=== PATIENT | female | born 1990 | race Caucasian/White ===

== ENCOUNTER 2021-05-14 13:55 | Emergency (ER) | payer OTHER ==
[~2021-05-14] VITALS: Ht 154.9 cm; Wt 68.0 kg
[~2021-05-14 13:55] MED LIST: ALBU-118 IH
[2021-05-14 14:13] VITALS: BP 122/76
[2021-05-14] MEDS ORDERED: IBUP-2213 PO (14:34)
[2021-05-14] MEDS ORDERED: AMOX-1000 PO (14:34)
--- NOTE | 2021-05-14 15:33 | NUR ---
Patient discharged by myself @ 1440. Patient in good condition, no complaints, stable vitals. All questions answered. given rx for augmentin and ibuprofen. Patient verbalized understanding of d/c instructions and agrees with treatment and plan.
== END 2021-05-14 14:40 | disposition home or self-care (01) ==
LOC: MED 13:55
DX: H66.92 Otitis media, unspecified, left ear (principal); J45.909 Unspecified asthma, uncomplicated; Z79.1 Long term (current) use of non-steroidal anti-inflammatories (NSAID); Z79.2 Long term (current) use of antibiotics; Z79.51 Long term (current) use of inhaled steroids
CPT/HCPCS: 99283

== ENCOUNTER 2021-10-30 15:51 | Emergency (ER) | payer OTHER ==
[~2021-10-30] VITALS: Ht 154.9 cm; Wt 66.7 kg
[~2021-10-30 15:51] MED LIST changes: +AMOX-1000 PO; +IBUP-2213 PO
[2021-10-30 16:11] VITALS: BP 129/68
--- NOTE | 2021-10-30 16:16 | NUR ---
pt lwbs at this time.
== END 2021-10-30 16:14 | disposition left against medical advice (07) ==
LOC: MED 15:51
DX: N23 Unspecified renal colic (principal); Z53.21 Procedure and treatment not carried out due to patient leaving prior to being seen by health care provider

== ENCOUNTER 2023-01-29 11:37 | Emergency (ER) | payer OTHER ==
[~2023-01-29] VITALS: Ht 154.9 cm; Wt 65.8 kg
[2023-01-29 11:43] VITALS: BP 133/84; PULSE 105; RESP 18; TEMP 98; O2SAT 99
[2023-01-29 12:33] LABS: BASOPHILS % (AUTO) 0.2 % (0.0-2.0); EOSINOPHILS # (AUTO) 0.2 K/uL (0-0.4); EOSINOPHILS % (AUTO) 2.3 % (0.0-4.0); HEMATOCRIT 40.8 % (36-48); HEMOGLOBIN 13.1 g/dL (12.0-16.0); LYMPHOCYTES # (AUTO) 1.4 K/uL (2.5-16.5); LYMPHOCYTES % (AUTO) 21.1 % (20.5-51.1); MEAN CORPUSCULAR HEMOGLOBIN 23 pg (27-31); MEAN CORPUSCULAR HGB CONC 32 g/dL (33-37); MEAN CORPUSCULAR VOLUME 72.6 fL (80-94); MONOCYTES # (AUTO) 0.4 K/uL (0.8-1.0); MONOCYTES % (AUTO) 5.7 % (1.7-9.3); NEUTROPHILS # (AUTO) 4.7 K/uL (1.8-7.7); NEUTROPHILS % (AUTO) 70.7 % (42.2-75.2); PLATELET COUNT (AUTO) 303 K/uL (140-450); RED BLOOD CELL COUNT(AUTO) 5.62 MIL/uL (4.20-5.40); RED CELL DISTRIBUTION WIDTH 16.2 % (11.6-13.7); WHITE BLOOD COUNT (AUTO) 6.6 K/uL (4.8-10.8)
[2023-01-29 12:34] VITALS: TEMP 98
[2023-01-29 12:55] LABS: APPEARANCE,URINE CLEAR (CLEAR); BILIRUBIN,URINE NEGATIVE (NEGATIVE); BLOOD, URINE NEGATIVE (NEGATIVE); COLOR,URINE YELLOW (YELLOW); LEUKOCYTE ESTERASE ,URINE 3+ (NEGATIVE); NITRITE, URINE NEGATIVE (NEGATIVE); PROTEIN,URINE 1+ (NEGATIVE); UGLUCOSE NEGATIVE (NEGATIVE); UROBILINOGEN,URINE 0.2 EU/dL (0.2 - 1)
[2023-01-29 13:03] LABS: RBC,URINE 0-5 /HPF (0-5)
[2023-01-29 13:04] LABS: BACTERIA,URINE 2+ /HPF (None Seen)
[2023-01-29 13:05] LABS: ALBUMIN 3.5 g/dL (3.4-5.0); ANION GAP 10.4 (8-16); CALCIUM 9.1 mg/dL (8.5-10.1); CARBON DIOXIDE 26.5 mmol/L (21-32); CREATININE 0.8 mg/dL (0.6-1.3); POTASSIUM 3.9 mmol/L (3.5-5.1); TOTAL BILIRUBIN 0.3 mg/dL (0.0-1.0); TOTAL PROTEIN, SERUM 7.5 g/dL (6.4-8.2)
[2023-01-29 13:06] LABS: SQUAMOUS EPITHELIAL CELL,UR 50-80 /LPF (0-3 (FEW)); YEAST,URINE Few /HPF (None Seen)
[2023-01-29] MEDS ORDERED: KETOROLAC 30 MG/ML VIAL IM ONE (15:20)
[2023-01-29] MEDS ORDERED: IBUP-2213 PO (15:22)
[2023-01-29] MEDS ORDERED: CEPH-588 PO (15:23)
[2023-01-29 16:08] VITALS: BP 135/72; PULSE 79; RESP 16; O2SAT 98
== END 2023-01-29 15:43 | disposition home or self-care (01) ==
LOC: MED 11:37
DX: R10.11 Right upper quadrant pain (principal); J45.909 Unspecified asthma, uncomplicated; Z79.899 Other long term (current) drug therapy; Z98.890 Other specified postprocedural states
CPT/HCPCS: 36415; 74176; 76705; 80053; 81001; 81025; 83690; 85025; 87086; 99284; Q0092; 99285